=== PATIENT | male | born 1990 | race Caucasian/White ===

== ENCOUNTER 2022-09-01 22:26 | Emergency (ER) | payer OTHER ==
[~2022-09-01] VITALS: Ht 177.8 cm; Wt 132.0 kg
[2022-09-01] MEDS ORDERED: OMEPRAZOLE20 MG PO (22:44)
--- NOTE | 2022-09-02 17:23 | EKG ---
[facility] [address] [facility] [place] [address] Signed Normal sinus rhythm Normal ECG No previous ECGs available Confirmed by Kelsey Ricardo MD () on 09/02/2022 5:23:41 PM Electronically Signed By: KELSEY RICARDO MD 09/02/22 1723 PATIENT NAME: NORM CHAMPAGNE Electrocardiogram DATE OF : 89 PHYSICIAN: KELSEY RICARDO MD REPORT #: [id number] REPORT IS CONFIDENTIAL AND NOT TO BE RELEASED WITHOUT AUTHORIZATION
== END 2022-09-02 01:38 | disposition home or self-care (01) ==
LOC: ED 22:26
DX: T58.8X1A Toxic effect of carbon monoxide from other source, accidental (unintentional), initial encounter (principal)
CPT/HCPCS: 36415; 84484; 93005; 93010; 99284-25